=== PATIENT | female | born 1975 | race Asian ===

== ENCOUNTER 2019-07-17 10:46 | Outpatient (CLI) | payer OTHER ==
--- NOTE | 2019-07-17 11:09 | RAD ---
3 views lumbar spine: 07/17/2019 COMPARISON: None HISTORY: Low back pain FINDINGS: No fracture or dislocation. Lumbar vertebral body height and alignment appears normal. Lumb ar pedicles appear intact on the frontal imaging. IMPRESSION: No acute findings.
== END 2019-07-17 10:47 | disposition home or self-care (01) ==
LOC: RAD-FRANK 10:46
PROVIDERS: ATTEND Nurse Practitioner Family
DX: M54.5 Low back pain (principal)
CPT/HCPCS: 72100

== ENCOUNTER 2020-05-31 11:48 | Outpatient (CLI) | payer BC ==
--- NOTE | 2020-05-31 12:51 | MMO ---
Bilateral MAMMO Bilat Screen [facility]. CLINICAL HISTORY: Patient is 44 years old and is seen for screening. The patient has no family history of breast cancer. The patient has no personal history of cancer. VIEWS: The views performed were: bilateral craniocaudal with tomosynthesis and bilateral mediolateral oblique with tomosynthesis. FILMS COMPARED: The present examination has been compared to prior imaging studies performed at [facility] on 10/31/2012 and 07/19/2014, and at [facility] on 08/22/2018. This study has been interpreted with the assistance of computer-aided detection. MAMMOGRAM FINDINGS: The breasts are extremely dense, which may lower the sensitivity of mammography. There are no suspicious masses, suspicious calcifications, or new areas of architectural distortion. IMPRESSION: THERE IS NO MAMMOGRAPHIC EVIDENCE OF MALIGNANCY. A ROUTINE FOLLOW-UP MAMMOGRAM IN 1 YEAR IS RECOMMENDED. THE RESULTS OF THIS EXAM WERE SENT TO THE PATIENT. ACR BI-RADS Category 1 - Negative MAMMOGRAPHY NOTE: 1. A negative mammogram report should not delay a biopsy if a dominant of clinically suspicious mass is present. 2. Approximately 10% to 15% of breast cancers are not detected by mammography. 3. Adenosis and dense breasts may obscure an underlying neoplasm. Reported by: NALLELY TALAMANTES MD Electonically Signed: [id number]
== END 2020-05-31 11:49 | disposition home or self-care (01) ==
LOC: BICMAMMO 11:48
PROVIDERS: ATTEND Obstetrics & Gynecology
DX: Z12.31 Encounter for screening mammogram for malignant neoplasm of breast (principal)
CPT/HCPCS: 77063; 77067

== ENCOUNTER 2021-02-14 13:33 | Outpatient (CLI) | payer OTHER | END 2021-02-14 13:34 | disposition home or self-care (01) | LOC: BICULT 13:33 | PROVIDERS: ATTEND Student in an Organized Health Care Education/Training Program | DX: E04.1 Nontoxic single thyroid nodule (principal) | CPT/HCPCS: 76536 ==

== ENCOUNTER 2021-12-02 10:12 | Outpatient (CLI) | payer OTHER | END 2021-12-02 10:13 | disposition home or self-care (01) | LOC: RAD-FRANK 10:12 | PROVIDERS: ATTEND Nurse Practitioner Family | DX: M70.22 Olecranon bursitis, left elbow (principal) ==

== ENCOUNTER 2022-01-13 14:33 | Outpatient (CLI) | payer OTHER | END 2022-01-13 14:34 | disposition home or self-care (01) | LOC: RAD-FRANK 14:33 | PROVIDERS: ATTEND Nurse Practitioner Family | DX: R07.89 Other chest pain (principal) | CPT/HCPCS: 71046 ==